=== PATIENT | female | born 1945 | race Caucasian/White ===

== ENCOUNTER → 2016-06-30 | Outpatient (CLI) | payer MEDICARE, OTHER ==
[~2016-06-30] MED LIST: GADOBUTROL 10mMol/10ml INJECTION IV ONE; SALINE FLUSH 10ml SYRINGE ONE
--- NOTE | 2016-06-30 10:27 | DI ---
Indication: ITS.REASON: R22.41 LOCALIZED SWELLING, MASS AND LUMP, RIGHT LOWER LIMB palpable lump on the lateral side of the right ankle with swelling and pain PROCEDURE: MRI ANKLE RIGHT W/WO CONTRAST: Encounter: Initial Comparison: None Technique: Multiplanar multisequence MR imaging of the right ankle was performed with and without contrast. Contrast: 8.5 mL Gadavist FINDINGS: In the area of palpable abnormality at the anterior and lateral aspect of the right ankle there is a vague area of T2 mild hyperintensity within the subcutaneous fat which is somewhat difficult to measure and does not have discrete borders but is approximately 8 mm in size. This area shows slight postcontrast enhancement on the contrast-enhanced images. On the nonfat suppressed images this area appears slightly lower in T1 signal than the adjacent subcutaneous fat. This small lesion is contained within an oval lobule of fat measuring 3.4 x 1 cm in maximal dimension. The Achilles tendon is normal in morphology and signal. Extensor tendons are normal. The posterior tibialis, flexor digitorum, and flexor hallucis longus tendons are normal. The peroneus longus and brevis tendons are normal. The deltoid ligament is intact. The anterior talofibular, calcaneofibular, and posterior talofibular ligaments are intact. The plantar fascia is normal. Bone marrow signal is unremarkable. IMPRESSION: Small ill-defined 8 mm area of signal change in the subcutaneous fat of the lateral ankle. This does not represent a well-defined or discrete mass. Leading differential considerations include lipoma and well-differentiated liposarcoma. Given the history of swelling and pain biopsy or surgical excision may be helpful. .
== END ==
LOC: IMA 08:10
PROVIDERS: ATTEND Family Medicine
DX: R93.7 Abnormal findings on diagnostic imaging of other parts of musculoskeletal system (principal)
CPT/HCPCS: 73723; A9585

== ENCOUNTER → 2016-06-30 | Outpatient (CLI) | payer MEDICARE, OTHER ==
--- NOTE | 2016-06-30 09:21 | DI ---
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 No lytic or blastic calvarial lesion seen. AP and lateral views of the cervical spine: No acute fracture. There is some straightening of the alignment and loss of the normal lordosis. Mild disk space narrowing at C5-C6 and C6-C7. No pathologic fracture or obvious lytic lesion. AP and lateral views of the thoracic spine: Normal alignment. No acute fracture or subluxation. No gross lytic or blastic osseous lesion. Age-appropriate mild degenerative disk disease. AP and lateral views of the lumbar spine: No acute fracture or subluxation. There is bilateral L5 spondylolysis and grade 2 spondylolisthesis of L5 on S1. No pathologic lytic or blastic lesions seen. AP view of the right ribs: No acute fracture. No lytic or blastic rib lesions seen. AP view of the left ribs: No acute fracture. No lytic or blastic rib lesions seen. AP view of the right humerus: Normal AP view of the left humerus: Normal AP view of the right forearm: No acute fracture. No lytic or blastic osseous lesion. AP view of the left forearm: No acute fracture. No lytic or blastic osseous lesion. AP view of the pelvis: No acute fracture. Pelvic phleboliths. No lytic lesion seen. AP views of the right femur: No acute fracture. No lytic or blastic osseous lesion. AP views of the left femur: No acute fracture. No lytic or blastic osseous lesion. AP view of the right tibia and fibula: No acute fracture. No lytic or blastic osseous lesion. AP view of the left tibia and fibula: No acute fracture. No lytic or blastic osseous lesion. Impression: Negative skeletal survey. No lytic or blastic osseous lesions seen. .
--- NOTE | 2016-06-30 11:29 | DI ---
Indication: ITS.REASON: R59.9 Enlarged lymph nodes, unspecified PROCEDURE: CT NECK/CHEST/ABD/PELVIS W/O: Encounter: Initial Comparison: Skeletal survey from today Technique: Axial CT images were performed through the neck, chest, abdomen and pelvis without intravenous contrast. Coronal and sagittal two-dimensional reformats. Automated Exposure Control and Iterative Reconstruction dose reducing techniques were utilized. Findings: Neck: Exam is somewhat limited without IV contrast. No gross adenopathy or mass seen in the neck. The parotid and submandibular glands appear normal and symmetric. Thyroid gland is normal. No mucosal based mass lesions identified. Artifact from prior dental restorations. Chest: Minimal atelectasis or scarring in the lingula and right middle lobe. The lungs are otherwise clear. No pneumonia, pleural effusion or pneumothorax. The central airways are patent. No worrisome pulmonary nodules or masses. No axillary or mediastinal adenopathy. Heart size is normal. No pericardial effusion. Small hiatal hernia. Abdomen/pelvis: The unenhanced contours of the liver are unremarkable. The gallbladder, spleen, pancreas and adrenal glands are within normal limits. There is some contrast excretion by the kidneys likely related to the patient's MRI previously today. No mesenteric or retroperitoneal adenopathy. No pelvic adenopathy identified. The bladder is grossly normal. Uterus is surgically absent. No free fluid or evidence of a bowel obstruction. Bone windows show no lytic or blastic osseous lesions. Bilateral L5 spondylolysis with grade 2 spondylolisthesis of L5 on S1. Impression: No acute disease process seen. No primary malignancy, metastatic disease or lymphadenopathy identified in the neck, chest, abdomen or pelvis. .
== END ==
LOC: IMA 08:14
PROVIDERS: ATTEND Internal Medicine Hematology & Oncology
DX: R59.9 Enlarged lymph nodes, unspecified (principal); D80.8 Other immunodeficiencies with predominantly antibody defects